=== PATIENT | female | born 1990 | race Caucasian/White ===

== ENCOUNTER 2017-10-24 00:22 | Emergency (ER) | payer SELFPAY ==
[~2017-10-24] VITALS: Ht 170.2 cm; Wt 68.0 kg
[2017-10-24] MEDS ORDERED: IBUPROFEN 600MG TABLET PO ONE (05:15)
[2017-10-24 05:24] VITALS: BP 101/62
== END 2017-10-24 05:25 | disposition home or self-care (01) ==
LOC: ER 01:47
DX: M25.512 Pain in left shoulder (principal); M54.89 Other dorsalgia; S09.90XA Unspecified injury of head, initial encounter; R42 Dizziness and giddiness; M54.2 Cervicalgia; M25.552 Pain in left hip; M79.602 Pain in left arm; M79.605 Pain in left leg; V49.50XA Passenger injured in collision with unspecified motor vehicles in traffic accident, initial encounter; Y93.89 Activity, other specified; Y92.410 Unspecified street and highway as the place of occurrence of the external cause
CPT/HCPCS: 71045; 72070; 72100; 72170; 73030; 99284; Z7610; A4565